=== PATIENT | female | born 1965 | race Caucasian/White ===

== ENCOUNTER → 2018-05-09 | Outpatient (CLI) | payer OTHER | LOC: M LRY 11:27 | DX: M25.511 Pain in right shoulder (principal) | CPT/HCPCS: 73030; 93005 ==

== ENCOUNTER → 2018-11-03 | Outpatient (REF) | payer OTHER | LOC: M SFHCLERA 12:44 | PROVIDERS: ATTEND Physician Assistant | DX: J02.9 Acute pharyngitis, unspecified (principal) ==

== ENCOUNTER 2021-11-23 11:39 | Day surgery (SDC) | payer OTHER ==
[~2021-11-23] VITALS: Ht 165.1 cm; Wt 131.9 kg
[~2021-11-23 11:39] MED LIST: GABA-1171 PO; NS 1,000 ML IV ONE; PRAM0.5T4 PO; VITMTA PO
[2021-11-23] MEDS ORDERED: propofoL 500 MG/50 ML VIAL As Ordered ONE (12:36)
[2021-11-23] MEDS ORDERED: fentaNYL 100 MCG/2 ML INJECTION As Ordered ONE (12:42)
[2021-11-23] MEDS ORDERED: PHENYLephrine 500MCG 5ML (100MCG/ML) SYRINGE As Ordered ONE (13:58)
[2021-11-23] MEDS ORDERED: LIDOCAINE 2% 100MG/5ML SDV (FOR ANES.) As Ordered ONE (13:59)
[2021-11-23 14:40] VITALS: BP 135/76
== END 2021-11-23 14:49 | disposition home or self-care (01) ==
LOC: M OPP 11:39
PROVIDERS: ATTEND Internal Medicine Gastroenterology
DX: R10.13 Epigastric pain (principal); K64.8 Other hemorrhoids; K62.1 Rectal polyp; K92.1 Melena; K57.30 Diverticulosis of large intestine without perforation or abscess without bleeding; Z88.0 Allergy status to penicillin; Z88.6 Allergy status to analgesic agent; Z98.84 Bariatric surgery status
CPT/HCPCS: 43235; 45385; 88305; J2370; J3010

== ENCOUNTER 2023-12-29 23:36 | Emergency (ER) | payer OTHER ==
[~2023-12-29] VITALS: Ht 167.6 cm; Wt 129.6 kg
[~2023-12-29 23:36] MED LIST changes: -NS 1,000 ML IV ONE
[2023-12-30 00:33] LABS: HEMATOCRIT 45.6 % (36.0-47.0); HEMOGLOBIN 15.6 g/dl (12.0-15.5); MEAN CORPUSCULAR HEMOGLOBIN 37.1 pg (27.0-33.0); MEAN CORPUSCULAR HGB CONC 34.2 g/dl (32.0-36.5); MEAN CORPUSCULAR VOLUME 108.6 fl (80.0-96.0); PLATELET COUNT, AUTOMATED 238 10^3/uL (150-450); WHITE BLOOD COUNT 6.8 10^3/uL (4.0-10.0)
[2023-12-30 00:58] LABS: ETHYL ALCOHOL (ETHANOL) 0.238 % (0.000-0.010)
[2023-12-30 00:59] LABS: ALBUMIN 3.5 G/DL (3.2-5.2); ALKALINE PHOSPHATASE 161 U/L (46-116); ALT/SGPT 105 U/L (7.0-40); AST/SGOT 219 U/L (<34); BILIRUBIN,DIRECT 0.1 MG/DL (<0.4); BILIRUBIN,TOTAL 0.3 MG/DL (0.3-1.2); BLOOD UREA NITROGEN 6 MG/DL (9-23); CALCIUM LEVEL 9.3 MG/DL (8.5-10.1); CARBON DIOXIDE LEVEL 24 MMOL/L (20-31); CHLORIDE LEVEL 101 MMOL/L (98-107); GLOMERULAR FILTRATION RATE > 60.0 (>51); GLUCOSE, FASTING 127 MG/DL (60-100); POTASSIUM SERUM 4.4 MMOL/L (3.5-5.1); SALICYLATE LEVEL < 3.0 MG/DL (<30); SODIUM LEVEL 136 MMOL/L (136-145); TOTAL PROTEIN 7.3 G/DL (5.7-8.2)
[2023-12-30 01:02] LABS: THYROID STIMULATING HORMONE 2.496 uIU/ML (0.55-4.78)
[2023-12-30 05:10] LABS: AMPHETAMINES LEVEL URINE NEGATIVE (NEGATIVE); BARBITURATES URINE NEGATIVE (NEGATIVE); BENZODIAZEPINES URINE NEGATIVE (NEGATIVE); CANNABINOIDS URINE NEGATIVE (NEGATIVE); COCAINE METABOLITE URINE NEGATIVE (NEGATIVE); METHADONE URINE NEGATIVE (NEGATIVE); OPIATES URINE NEGATIVE (NEGATIVE); PHENCYCLIDINE URINE NEGATIVE (NEGATIVE)
[2023-12-30] MEDS ORDERED: THERTAB52 PO (07:45)
[2023-12-30] MEDS ORDERED: GABA-282 PO (07:45)
[2023-12-30] MEDS ORDERED: HYDR-3490 PO (07:49)
[2023-12-30] MEDS ORDERED: METO1TAB7 PO (07:49)
[2023-12-30] MEDS ORDERED: METF500T13 PO (07:49)
[2023-12-30] MEDS ORDERED: ROSU10TA6 PO (07:49)
[2023-12-30] MEDS ORDERED: HOME MED LIST COMPLETE! XX SCH (07:50)
[2023-12-30] MEDS: METOPROLOL SUCC (TopROL XL) 50MG **XL** TAB PO SCH (09:56)
[2023-12-30] MEDS: metFORMIN (GLUCOPHAGE) 500MG TAB PO SCH (09:56)
[2023-12-30] MEDS: ROSUVASTATIN 10 MG TAB (CRESTOR) PO SCH (09:56)
[2023-12-30] MEDS: MULTIVITAMINS/MINERALS THERAP 1 TAB PO SCH (09:57)
[2023-12-30] MEDS: GABAPENTIN 400MG CAP PO SCH (21:08)
[2023-12-30] MEDS: PRAMIPEXOLE 0.25 MG TAB PO SCH (21:08)
[2024-01-01 07:27] VITALS: BP 142/86
[2024-01-01 11:00] VITALS: TEMP 97.4; O2SAT 96
[2024-01-01 11:10] VITALS: BP 156/84
== END 2024-01-01 11:20 ==
LOC: M ED 23:36
DX: R45.851 Suicidal ideations (principal); I10 Essential (primary) hypertension; F32.A Depression, unspecified; F10.10 Alcohol abuse, uncomplicated; Z98.84 Bariatric surgery status; Z79.899 Other long term (current) drug therapy; Z88.0 Allergy status to penicillin; Z88.5 Allergy status to narcotic agent